=== PATIENT | male | born 1995 | race Caucasian/White ===

== ENCOUNTER 2018-04-20 11:31 | Emergency (ER) | payer OTHER ==
[~2018-04-20] VITALS: Ht 172.7 cm; Wt 77.1 kg
[~2018-04-20 11:31] MED LIST: ALBU90OI INH; BENZ100A PO; CODGUAEL PO; Flomax0.4 MG PO; IBUP600 PO; Norco 5-325 Ta1 EACH PO; SUBOXONE 2 MG-1 EACH SL
== END 2018-04-20 12:26 | disposition home or self-care (01) ==
LOC: ER 11:31
DX: H72.92 Unspecified perforation of tympanic membrane, left ear (principal); F17.200 Nicotine dependence, unspecified, uncomplicated
CPT/HCPCS: 99282

== ENCOUNTER 2019-11-22 02:03 | Emergency (ER) | payer OTHER ==
[~2019-11-22] VITALS: Ht 175.3 cm; Wt 77.1 kg
== END 2019-11-22 05:53 | disposition left against medical advice (07) ==
LOC: ER 02:03
DX: Z53.21 Procedure and treatment not carried out due to patient leaving prior to being seen by health care provider (principal)

== ENCOUNTER → 2020-01-07 | Outpatient (CLI) | payer BC, OTHER ==
[~2020-01-07] MED LIST changes: +CEPH500 PO
[2020-01-07 18:55] LABS: BASOPHILS ABSOLUTE AUTO 0.05 K/mm3 (0.00-0.23); BASOPHILS PERCENT AUTO 1 % (0-2); EOSINOPHILS ABSOLUTE AUTO 0.09 K/mm3 (0.00-0.68); EOSINOPHILS PERCENT AUTO 2 % (0-6); Hematocrit 44.4 % (37.0-53.0); Hemoglobin 14.6 g/dL (13.5-17.5); IMMATURE GRAN ABSOLUTE AUTO 0.02 K/mm3 (0.00-0.10); IMMATURE GRAN PERCENT AUTO 0 % (0-1); LYMPHOCYTES ABSOLUTE AUTO 1.78 K/mm3 (0.84-5.20); LYMPHOCYTES PERCENT AUTO 29 % (21-46); MONOCYTES ABSOLUTE AUTO 0.22 K/mm3 (0.16-1.47); MONOCYTES PERCENT AUTO 4 % (4-13); Mean Corpuscular HGB 29.6 pg (26.0-34.0); Mean Corpuscular HGB Conc 32.9 g/dL (31.5-36.5); Mean Corpuscular Volume 90 fL (80-100); Mean Platelet Volume 10.2 fL (9.1-12.4); NEUTROPHILS ABSOLUTE AUTO 3.92 K/mm3 (1.96-9.15); NEUTROPHILS PERCENT AUTO 65 % (41-73); Platelet Count 309 K/mm3 (150-400); RDW Standard Deviation 42.4 fL (35.1-46.3); Red Blood Cell Count 4.94 M/mm3 (4.30-5.90); White Blood Cell Count 6.08 K/mm3 (4.00-11.30)
== END | disposition home or self-care (01) ==
LOC: LAB SHORT 18:49 → LAB 18:49
PROVIDERS: Family Medicine
DX: R23.8 Other skin changes (principal)
CPT/HCPCS: 85025

== ENCOUNTER 2020-01-09 09:13 | Emergency (ER) | payer BC, OTHER ==
[~2020-01-09] VITALS: Ht 177.8 cm; Wt 65.8 kg
[~2020-01-09 09:13] MED LIST changes: -CEPH500 PO
[2020-01-09] MEDS ORDERED: CEPH500 PO (10:19)
== END 2020-01-09 10:27 | disposition home or self-care (01) ==
LOC: ER 09:13
DX: L73.9 Follicular disorder, unspecified (principal); F11.10 Opioid abuse, uncomplicated; F17.200 Nicotine dependence, unspecified, uncomplicated
CPT/HCPCS: 99282

== ENCOUNTER 2022-12-22 15:41 | Emergency (ER) | payer SELFPAY ==
[~2022-12-22] VITALS: Ht 175.3 cm; Wt 77.1 kg
[~2022-12-22 15:41] MED LIST changes: +CEPH500 PO
== END 2022-12-22 15:50 | disposition home or self-care (01) ==
LOC: ER 15:41
DX: Z03.6 Encounter for observation for suspected toxic effect from ingested substance ruled out (principal); F15.91 Other stimulant use, unspecified, in remission; F17.200 Nicotine dependence, unspecified, uncomplicated; Z79.899 Other long term (current) drug therapy
CPT/HCPCS: 99282

== ENCOUNTER 2025-01-23 17:05 | Emergency (ER) | payer OTHER ==
[~2025-01-23] VITALS: Ht 177.8 cm; Wt 74.8 kg
[2025-01-23] MEDS ORDERED: CEPH500 PO (18:23)
[2025-01-23] MEDS ORDERED: Cephalexin Monohydrate 500 MG Cap PO ONE (18:25)
[2025-01-23 18:40] VITALS: BP 168/74
== END 2025-01-23 18:26 | disposition home or self-care (01) ==
LOC: ER 17:05
DX: L03.211 Cellulitis of face (principal); F17.200 Nicotine dependence, unspecified, uncomplicated
CPT/HCPCS: A9270